=== PATIENT | male | born 1975 | race Two or more races ===

== ENCOUNTER 2023-01-23 08:30 | Outpatient (RCR) | payer OTHER, SELFPAY ==
[2022-12-22 07:16] VITALS: BP 133/85; PULSE 78
== END 2023-03-06 12:13 | disposition home or self-care (01) ==
LOC: HO.PT 08:30
PROVIDERS: PCP Family Medicine; Visit Provider Family Medicine
DX: R42 Dizziness and giddiness (principal)
CPT/HCPCS: 95992; 97161

== ENCOUNTER 2023-04-27 23:27 | Emergency (ER) | payer OTHER, SELFPAY ==
[2023-04-27 23:28] VITALS: BP 132/78; PULSE 85; RESP 18; TEMP 36.6; O2SAT 98; BMI 28.3
--- NOTE | 2023-04-28 00:01 | PC.NURSE ---
pt brought back to [facility] [place] 1 @ [id number]. pt calm and cooperative. pt daughter at bedside. pt denies CP, SOB, difficulty breathing awaiting to be seen by ed provider
--- NOTE | 2023-04-28 00:27 | ECG_ITS ---
Test Reason : HICCUPS Blood Pressure : / mmHG Vent. Rate : 070 BPM Atrial Rate : 070 BPM P-R Int : 150 ms QRS Dur : 088 ms QT Int : 386 ms P-R-T Axes : 061 062 047 degrees QTc Int : 416 ms Normal sinus rhythm Normal ECG No previous ECGs available Referred By: Antonio Sharma Electronically Signed By:ROBER WAKEFIELD MD
--- OUTSIDE RECORDS SUMMARY | 2023-04-28 00:30 | XMS_ITS | Continuity of Care Document ---
Author Name Unknown Organization [facility] ialty Address [address] [place] [address]- Care Team Providers Care Passementerie Worker Name Role Phone Kedar Walker MD, Willi Primary Care Phys [facility] [place] [facility] [place]18[place] 08/25/19 [facility] [address] [place] [address]- [facility] Attending Physician: Chao Kaur MD Referring Physician: Kedar Walker MD , Willi Allergies, Adverse Reactions, Alerts Substance Reaction Severity Status CeleBREX 1 Persistent Moderate Active 1rash Medications diclofenac sodium 75 mg oral delayed release tablet 1 tablet = 75 mg, By Mouth, 2 times a day, # 60 tablet, 1 Refills, Maintenance, 08/17/14 16:19:56, EC Tablet, 1 tablet By Mouth 2 times a day Start Date: 08/17/14 Stop Date: 11/12/14 Status: Ordered diclofenac sodium 75 mg oral delayed release tablet 1 tablet = 75 mg, By Mouth, 2 times a day, # 60 tablet, 2 Refills, Maintenance, 11/20/16 11:54:06, EC Tablet Start Date: 11/20/16 Status: Ordered diclofenac sodium 75 mg oral delayed release tablet 1 tablet = 75 mg, By Mouth, 2 times a day, with food, # 60 tablet, 2 Refills, Maintenance, 08/05/2009:36:00 EST, EC Tablet, [id number], 172.75, cm, 08/06/17 8:50:00 EST, Height Start Date: 08/05/19 Status: Ordered diclofenac sodium 75 mg oral delayed release tablet 1 tablet = 75 mg, By Mouth, 2 times a day, # 60 tablet, 2 Refills, Maintenance, 02/02/16 15:24:10 Start Date: 02/02/16 Status: Ordered diclofenac sodium 75 mg oral delayed release tablet 1 tablet = 75 mg, By Mouth, 2 times a day, with food, # 60 tablet, 2 Refills, Maintenance, 10/22/1513:19:57, EC Tablet Start Date: 10/22/14 Status: Ordered Knee Support Maintenance, [id number] TRUPULL LITE RIGHT XL, 10/18/17 10:36:38 EDT, Compound Start Date: 10/18/17 Status: Ordered Knee Support See Instructions, Maintenance, TJ-PULL LITE, RT, L REF [id number], 02/02/16 15:43:56, Compound Start Date: 02/02/16 Status: Ordered meloxicam 7.5 mg oral tablet 1 tablet = 7.5 mg, By Mouth, Daily, # 30 tablet, 1 Refills, Maintenance, 08/06/17 9:36:34 Start Date: 08/06/17 Status: Ordered Supartz FX = 20 mg, Intra-articular, 0 Refills, Maintenance, 01/23/17 9:29:21 Start Date: 01/23/17 Status: Ordered Vital Signs Most recent to oldest [Reference Range]: 1 Height 172.75 cm (08/18/19 11:35 AM) Social History Social History Type Response Smoking Status Never smoker; Tobacc o user in household: No entered on: 02/02/16 Sex
--- OUTSIDE RECORDS SUMMARY | 2023-04-28 00:30 | XMS_ITS | Continuity of Care Document ---
Author Name Unknown Organization [facility] Address [address] [place] [address]- Care Team Providers Care Snowblower Mechanic Name Role Phone Kedar Walker MD, [facility] Primary [facility] Phys ici [place] [facility] [place](s): 08/05/19 - 08/15/19 [facility] [address] [place] [address]- [facility] Attending Physician: Marcia Sams Admitting Physician: AdmMarcia foster Referring Physician: AdmtrMarcia Allergies, Adverse Reactions, Alerts Substance Reaction Severity [...] 2 Refills, Maintenance, 08/05/2009:36:00 EST, EC Tablet, [facility] #[id number], 172.75, cm, 08/06/17 8:50:00 EST, Height Start [...] Date: 10/22/14 Status: Ordered Knee Support Maintenance, [id number] TRUPULL LITE RIGHT XL, 10/18/17 10:36:38 EDT, [...] 01/23/17 9:29:21 Start Date: 01/23/17 Status: Ordered Social History Social History Type Response Smoking Status Never smoker; Tobacc o user in household: No entered on: 02/02/16 Sex
--- OUTSIDE RECORDS SUMMARY | 2023-04-28 00:30 | XMS_ITS | Continuity of Care Document ---
Author Name Unknown Organization [facility] Address [address] [place] [address]- Care Team Providers Care Forms Designer Name Role Phone Kedar Walker MD, [facility] Primary Care Phys ician [place] [facility] [place] 08[place]12/19 [facility] [address] [place] [address]- [facility] Attending Physician: Chao Kaur MD Admitting Physician: Chao Kaur MD Referring Physician: Not on Staff, Referring MD Allergies, Adverse Reactions, Alerts Substance Reaction Severity [...] 2 Refills, Maintenance, 08/05/2009:36:00 EST, EC Tablet, [facility] #[id number], 172.75, cm, 08/06/17 8:50:00 EST, Height Start [...] Date: 10/22/14 Status: Ordered Knee Support Maintenance, [id number] TRUPULL LITE RIGHT XL, 10/18/17 10:36:38 EDT, [...]
--- OUTSIDE RECORDS SUMMARY | 2023-04-28 00:30 | XMS_ITS | Continuity of Care Document ---
Author Name Unknown Organization [facility] Address [address] [place] [address]- Care Team Providers Care Surveillance Specialist Name Role Phone Kedar Walker MD, Willi Primary Care Phys ician Encounter [facility] [place] Date(s): 06/23/21 - 08/27/21 [facility] [address] [place] [address] Attending Physician: Chao Kaur MD Admitting Physician: Chao Kaur MD Referring Physician: Willi Norton MD Allergies, Adverse Reactions, Alerts Substance Reaction Severity Status CeleBREX 1 Persistent Moderate Active 1rash Social History Social History Type Response Smoking Status Never smoker; Tobacc o user in household: No entered on: 02/02/16 Sex
--- OUTSIDE RECORDS SUMMARY | 2023-04-28 00:31 | XMS_ITS | Continuity of Care Document ---
Author Name Unknown Organization [facility] Address [address] [place] [address]- Care Team Providers Care Microphone Operator Name Role Phone Kedar Walker MD, [facility] Primary Care Phys ician En[place] [facility] [place] Date(s): 07/28/21 - 08/27/21 [facility] [address] [place] [id number] Attending Physician: Admcirstian, Marcia Admitting Physician: Admtr, Ar8 Referring Physician: Admtr, Ar8 Allergies, Adverse Reactions, Alerts Substance Reaction Severity Status CeleBREX 1 Persistent Moderate Active 1rash Social History Social History Type Response Smoking Status Never smoker; Tobacc o user in household: No entered on: 02/02/16 Sex
--- OUTSIDE RECORDS SUMMARY | 2023-04-28 00:31 | XMS_ITS | Continuity of Care Document ---
Author Name Unknown Organization [facility] Address [address] [place] [address]- Care Team Providers Care Sieve Repairer Name Role Phone Kedar Walker MD, [facility] Primary Care Phys [facility] Encounter [facility] [place] Date(s): 08/18/19 - 08/28/19 [facility] [address] [place] [address]- [facility] Attending Physician: Marcia Sams Admitting Physician: Marcia Sams Referring Physician: AdmtrMarcia Allergies, Adverse Reactions, Alerts [...] 2 Refills, Maintenance, 08/05/2009:36:00 EST, EC Tablet, [facility] #[id number], 172.75, cm, 08/06/17 8:50:00 EST, Height Start [...] Date: 10/22/14 Status: Ordered Knee Support Maintenance, [id number] TRUPULL LITE RIGHT XL, 10/18/17 10:36:38 EDT, [...]
--- NOTE | 2023-04-28 00:32 | ED_ITS ---
HPI - General Adult General Chief complaint: General Medical Stated complaint: non stop hiccup, can't stop Time Seen by Provider: 04/28/23 00:21 Source: patient, family (daughter), RN notes reviewed and old records reviewed Mode of arrival: ambulatory Limitations: no limitations History of Present Illness HPI narrative: 47-year-old male with history of hepatitis B reported under control presents for evaluation of hiccups. patient reports that his symptoms started 3 days ago he has been hiccuping every 5-10 seconds for last 3 days with maybe 1-2 hours of relief over the last 3 days patient reports he started have some mild chest pain which he believes is related to the hiccups. Denies any coughing, shortness of breath. No abdominal pain, nausea vomiting he believes this has happened to him once in the past but he is unsure if he any testing done because of no fevers or chills Related Data Previous Rx's Medication Instructions Recorded chlorpromazine 25 mg tablet 25 mg PO Q4-6H PRN hiccups #20 tabs 04/28/23 Allergies Allergy/AdvReac Type Severity Reaction Status Date / Time No Known Allergies Allergy Verified 04/27/23 23:32 Review of Systems Constitutional: Constitutional: Denies chills and Denies fever(s) Cardiovascular: Cardiovascular: Reports chest pain, Denies dyspnea and Reports other ( intractable hiccups) Respiratory: Respiratory: Denies cough and Denies dyspnea Gastrointestinal: Gastrointestinal: Denies abdominal pain, Denies nausea and Denies vomiting PMFSH Social History Social History Advance Directives: No Advance Directives Information Provided: Yes Physical Exam ED Vital Signs: Vital Signs - 24 hr 04/27/23 23:28 Temperature 97.9 F Pulse Rate 85 Respiratory Rate 18 Blood Pressure 132/78 Pulse Oximetry 98 Oxygen Delivery Method Room Air BMI result Body Mass Index 28.3 Const Other: patient resting comfortably in a seated position. He is able to speak in full sentences but is hiccuping every 5-10 seconds. General: healthy appearing, comfortable, no acute distress, alert and awake Nutritional Appearance: well nourished Orientation/consciousness: patient oriented x3 HENMT Head: Yes normocephalic and Yes atraumatic Eyes Eyelids: Yes eyelids normal Conjunctivae: conjunctivae normal Sclerae: sclerae normal Corneas: corneas normal Pupils: Equal, round and reactive pupils present EOM: EOMs intact bilaterally Neck Neck: Yes full ROM Resp Effort & Inspection: normal respiratory effort, able to speak in complete sentences and not labored Cardio Rate: regular rate Rhythm: regular rhythm GI Inspection: No distended Palpation (GI): Soft to palpation, not firm, nontender, no guarding and not rigid Skin General skin exam: elasticity normal Neuro General: patient oriented x3 Cranial nerves: Yes Equal, round and reactive pupils present and Yes Bilaterally intact EOM present Cognition (Neuro): normal cognition Extrem Other: Moving all extremities well without any obvious deformities Course Reevaluation(s) Reevaluation #1: Patient's EKG is normal sinus rhythm without ischemia. When re-evaluated the patient, his hiccups about resolved within 15 minutes after receiving the Thorazine IM. This point I offered the patient to be discharged as I do not feel labs will show anything acute. Patient would like to be discharged at this time and reports he follows regularly with And has labs drawn regularly especially to monitor his hepatitis. He will return for any new or worsening symptoms at which point we can reconsider labs Time: 01:08 Medications Administered Discontinued Medications Generic Name Dose Route Start Last Admin Trade Name Freq PRN Reason Stop Dose Admin Chlorpromazine HCl 25 mg 04/28/23 00:27 04/28/23 00:56 Chlorpromazine Hcl 25 Mg/Ml Ampul IM 04/28/23 00:28 25 mg ONCE ONE Administration Medical Decision Making Medical Decision Making [facility] Narrative: 47-year-old male presents for evaluation intractable hiccups for the last 3 days. this is likely a side effect of the cortisone injections as he believes this happened in the past also after cortisone injections. Plan for EKG, basic labs check LFT disease as he has a history of hepatitis. Will medicate with Thorazine 25 mg IM Differential Diagnosis Differential Diagnoses: The differential diagnosis associated with the presentation includes intractable hiccups Chest pain ACS less likely Hepatitis-B diaphragm spasm Independent Interpretation I performed an independent interpretation of an: EKG ( normal sinus rhythm with a rate of 70 beats per minute, no ischemic changes or ectopy) Discharge Plan Discharge Clinical Impression: Intractable hiccups Patient Disposition: Home, Self-Care Instructions: Hiccups (ED) Additional Instructions: your workup in the emergency department today was reassuring this includes your EKG, labs your hiccups are likely related to your cortisone injections use Thorazine as directed for any further/recurrent hiccups follow-up with your primary doctor Prescriptions: New chlorpromazine 25 mg tablet 25 mg PO Q4-6H PRN (Reason: hiccups) Qty: 20 0RF
[2023-04-28] MEDS: chlorproMAZINE HCl 25 MG/ML AMPUL IM (00:56)
--- NOTE | 2023-04-28 01:02 | PC.NURSE ---
pt medicated according to mar
--- NOTE | 2023-04-28 01:15 | PC.NURSE ---
brayan mattson cancelled lab work. pt discharge pending
== END 2023-04-28 01:18 | disposition home or self-care (01) ==
PROVIDERS: Emergency Provider Internal Medicine
DX: R06.6 Hiccough (principal); B19.10 Unspecified viral hepatitis B without hepatic coma
CPT/HCPCS: 93005; 96372; 99284; J3230

== ENCOUNTER 2024-09-05 09:06 | Emergency (ER) | payer OTHER, SELFPAY ==
[2024-09-05 09:14] VITALS: BP 128/83; PULSE 72; RESP 16; TEMP 36.7; O2SAT 98; BMI 29.5
--- NOTE | 2024-09-05 09:58 | ED_ITS ---
HPI - Wound/Laceration General Chief Complaint: Wound/Laceration Stated Complaint: finger laceration Time Seen by Provider: 09/05/24 09:19 Source: patient Mode of arrival: ambulatory Limitations: no limitations History of Present Illness ED Provider: rg emerson np HPI narrative: patient is a 49-year-old male who presents emergency department for evaluation. He reports that yesterday he sustained an accidental laceration to the left 4th digit along the border of the fingernail, he was cutting onions and accidentally cut part of his finger. Reports his last tetanus vaccination was last year. He denies any redness pain or swelling to the finger. He reports that today there was a small amount of blood that has continued in his noted on a bandage. He is not on any anticoagulants nor has any known coagulation disorders Related Data Previous Rx's ?Medication ?Instructions ?Recorded chlorpromazine 25 mg tablet 25 mg PO Q4-6H PRN hiccups #20 tabs 04/28/23 Allergies Allergy/AdvReac Type Severity Reaction Status Date / Time No Known Allergies Allergy Verified 09/05/24 09:17 Review of Systems Review of Systems: Yes all other systems are reviewed and are negative [facility] Past Medical History Attestation statement: The following information was validated with the patient. Source: old records reviewed Physical Exam Vital Signs: Vital Signs: Last Vital Signs Temp 98.0 F 09/05/24 09:14 Pulse 72 09/05/24 09:14 Resp 16 09/05/24 09:14 BP 128/83 09/05/24 09:14 Pulse Ox 98 09/05/24 09:14 O2 Del Method Room Air 09/05/24 09:14 BMI result Body Mass Index 29.5 Appearance: Alert.?Oriented to person, place and time. No acute distress.?Normal affect. CVS: Heart sounds normal. Normal heart rate and rhythm.? Pulses normal.?? Respiratory: No respiratory distress.? Lung sounds clear to auscultation bilaterally?? Skin: Skin warm and dry.? Normal skin color.? left 4th digit lateral narrow border with 0.5 cm X 0.25 cm avulsion, no active bleeding? Neuro: Moves all extremities spontaneously. Sensation intact bilaterally. C Ambulates with normal steady gait. Medical Decision Making Medical Decision Making MDM Narrative: Patient is a 49-year-old male who presents emergency department for evaluation of a left 4th digit minor avulsion as per PE portion of this note sustained from a kitchen knife while cutting onions yesterday. Bleeding is controlled. No use of anticoagulants or known coagulation disorders. Tetanus vaccination is up-to-date. Wound was cleansed with warm water and mild non scented soap followed by saline. Continues to have no active bleeding. A small amount of Xeroform gauze was applied over the wound bed and covered with a bandage. Discussed conservative wound treatment at home and monitoring for signs of infection. All questions were answered. Stable for discharge Differential Diagnosis Differential Diagnoses: The differential diagnosis associated with the presentation includes ( laceration, avulsion, active bleeding) External Record Review External record reviewed: Outpatient record Prescription Management I considered prescription management with: Pain Medication Discharge Plan Discharge Clinical Impression: Avulsion of finger Qualifiers: Encounter type: initial encounter Qualified Code(s): S61.209A - Unspecified open wound of unspecified finger without damage to nail, initial encounter Patient Disposition: Home, Self-Care Instructions: Finger Laceration (ED) Additional Instructions: cleaned with warm water and mild non scented soap at least twice daily, apply the Xeroform gauze as given and bandage over it. Monitor for signs of infection which include but it is not limited to redness, pain, swelling, pus-like discharge, inability to bend the finger, fevers, chills. Follow-up with primary care doctor as needed Prescriptions: No Action chlorpromazine 25 mg tablet 25 mg PO Q4-6H PRN (Reason: hiccups) Qty: 20 0RF Referrals: Willi Norton MD [Primary Care Provider] - Print Language: Sami
[2024-09-05 10:23] VITALS: BP 128/83; PULSE 72; RESP 16; TEMP 36.7; O2SAT 98
== END 2024-09-05 10:26 | disposition home or self-care (01) ==
PROVIDERS: Emergency Provider Emergency Medicine; PCP Family Medicine
DX: S61.215A Laceration without foreign body of left ring finger without damage to nail, initial encounter (principal); W26.0XXA Contact with knife, initial encounter; Y93.G1 Activity, food preparation and clean up; Y92.000 Kitchen of unspecified non-institutional (private) residence as the place of occurrence of the external cause; Y99.9 Unspecified external cause status
CPT/HCPCS: 99282